=== PATIENT | female | born 1960 | race Caucasian/White ===

== ENCOUNTER 2019-06-22 03:00 | Emergency (ER) | payer MEDICAID ==
[2019-06-22] MEDS ORDERED: DIPH/PERTUSS(ACELL)/TETANUS VAC/PF 0.5 ML SYR (>=10YO) IM ONE (07:15)
--- NOTE | 2019-06-22 07:34 | ER Document Report ---
ED General - General Chief Complaint: Leg Pain Stated Complaint: LEG PAIN-CAT SCRATCH Time Seen by Provider: 06/22/19 07:05 - HPI Notes: Patient is a 59-year-old female who presents the emergency department for evaluation. She has a history of diabetes. She states she was scratched by her kitten last night. She was worried because she is a diabetic that it could become more problematic so she presents to the ED for further evaluation. She is unsure as to when her last tetanus shot was. No fevers or chills, no nausea or vomiting. She did cleanse the wound. - Related Data Allergies/Adverse Reactions: acetaminophen [From Vicodin] Allergy (Verified 06/22/19 03:23) ciprofloxacin [From Cipro] Allergy (Verified 06/22/19 03:23) hydrocodone [From Vicodin] Allergy (Verified 06/22/19 03:23) nitrofurantoin [From Macrobid] Allergy (Verified 06/22/19 03:23) phenazopyridine Allergy (Verified 06/22/19 03:23) Home Medications: List reviewed, please see note Past Medical History - General Information source: Patient - Social History Smoking Status: Former Smoker Family History: Reviewed & Not Pertinent Patient has suicidal ideation: No Patient has homicidal ideation: No - Past Medical History Cardiac Medical History: Reports: Hx Hypercholesterolemia, Hx Hypertension Pulmonary Medical History: Reports: Hx Asthma Endocrine Medical History: Reports: Hx Diabetes Mellitus Type 2 Psychiatric Medical History: Reports: Hx Depression Past Surgical History: Reports: Hx Abdominal Surgery - HERNIA REPAIR, Hx Section - X2, Hx Cholecystectomy Review of Systems - Review of Systems Constitutional: No symptoms reported EENT: No symptoms reported Cardiovascular: No symptoms reported Respiratory: No symptoms reported Gastrointestinal: No symptoms reported Genitourinary: No symptoms reported Musculoskeletal: No symptoms reported Skin: See HPI Neurological/Psychological: No symptoms reported Physical Exam - Vital signs Vitals: Temp Pulse Resp BP Pulse Ox 98.0 F 82 20 157/94 H 94 06/22/19 03:07 06/22/19 03:07 06/22/19 03:07 06/22/19 03:07 06/22/19 03:07 - Notes Notes: Problem there is a pleasant 59-year-old female who appears her stated age in no acute distress. Physical exam is limited the area of chief complaint. Examination of the distal left montalvo yields an approximately 6-1/2 cm linear superficial abrasion. There is no signs of dehiscence, induration, erythema, drainage. No local inflammation is noted. Course - Re-evaluation Re-evalutation: 06/22/19 07:32 Patient presents to the emergency department for evaluation. This was just a sc ratch and not a bite. It is her kitten. She is instructed on wound care, wound care given here. Her tetanus is updated and the patient will be discharged. - Vital Signs Vital signs: Temp Pulse Resp BP Pulse Ox 97.3 F 71 18 131/84 H 97 06/22/19 08:23 06/22/19 08:23 06/22/19 08:23 06/22/19 08:23 06/22/19 08:23 Discharge - Discharge Clinical Impression: Cat scratch Condition: Stable Disposition: HOME, SELF-CARE Instructions: Non-Sutured Laceration ([facility]), Tetanus Immunization Given ([facility]) Additional Instructions: Keep wound clean with soap and water. Antibiotic ointment, protect from becoming soiled. Watch for signs of infection, including but not limited to increased pain, redness, drainage, red streaking, fevers, vomiting. Follow-up with primary care this week. Return to the ED with worsening or new concerning symptoms of any sort.
[2019-06-22 08:24] VITALS: BP 131/84
== END 2019-06-22 08:24 | disposition home or self-care (01) ==
LOC: ER 03:00
DX: M79.606 Pain in leg, unspecified (principal); W55.03XA Scratched by cat, initial encounter; E11.9 Type 2 diabetes mellitus without complications; Z87.891 Personal history of nicotine dependence; I10 Essential (primary) hypertension; J45.909 Unspecified asthma, uncomplicated
CPT/HCPCS: 90471; 90715; 99283